=== PATIENT | male | born 1960 | race Two or more races ===

== ENCOUNTER 2017-03-12 09:13 | Day surgery (SDC) | payer OTHER ==
[~2017-03-12] VITALS: Ht 162.6 cm; Wt 76.3 kg
[2017-03-12 09:34] VITALS: Ht 162.6 cm; Wt 76.3 kg
[2017-03-12] MEDS ORDERED: HALO5TAB23 PO (09:46)
[2017-03-12] MEDS ORDERED: TRIHEXYPHENIDYL PO (09:46)
[2017-03-12] MEDS ORDERED: PROPOFOL 20 ML ONE (09:54)
[2017-03-12] MEDS ORDERED: MIDAZOLAM 1 MG/ML 2 ML INJ ONE (09:55)
[2017-03-12] MEDS ORDERED: FENTAnyl 50 MCG/ML VIAL ONE (09:55)
[2017-03-12 09:56] VITALS: BP 119/74; PULSE 77; RESP 18
--- NOTE | 2017-03-12 10:15 | OPPN ---
Date/Time of Note Date/Time of Note DATE: 03/12/17 TIME: 10:14 Proc Note GI Procedure Date 03/12/17 Indication: screening/surveillance Pre-procedure Diagnosis Screening colonoscopy Post-procedure Diagnosis Polyp demyelinative successfully removed by jumbo biopsy forceps it was in the sigmoid colon. External hemorrhoid Negative into terminal ileum Procedure Performed: Colonoscopy Surgeon see signature line Provider Engagement Executive none Anesthesia Type: MAC Tourniquet Time none EBL none Transfusion required none Biopsy 1: D- the polyp Grafts/Implants none Tubes/Drains none Complication(s) none Disposition: home Procedure Description See dictated report TIMOTHY DIALLO MD Mar 12, 2017 10:15
--- NOTE | 2017-03-12 10:15 | OPPN ---
Date/Time of Note Date/Time of Note DATE: 03/12/17 TIME: 10:14 Proc Note GI Procedure Date 03/12/17 Indication: screening/surveillance Pre-procedure Diagnosis Screening colonoscopy Post-procedure Diagnosis Polyp demyelinative successfully removed by jumbo biopsy forceps it was in the sigmoid colon. External hemorrhoid Negative into terminal ileum Procedure Performed: Colonoscopy Surgeon see signature line Manager Photo none Anesthesia Type: MAC Tourniquet Time none EBL none Transfusion required none Biopsy 1: D- the polyp Grafts/Implants none Tubes/Drains none Complication(s) none Disposition: home Procedure Description See dictated report TIMOTHY DIALLO MD Mar 12, 2017 10:15
--- NOTE | 2017-03-13 02:57 | GILP ---
DATE OF PROCEDURE: PROCEDURE PERFORMED: Colonoscopy with removal of polyp. INDICATION: The patient is a 56-year-old male undergoing this procedure for screening colonoscopy. The risk of the procedure, related and unrelated complications, anesthetic risks, alternatives discu ssed. Informed consent was obtained. DESCRIPTION OF PROCEDURE: Patient was brought to the GI lab, sedated by the anesthesiologist. Afte r optimum sedation, scope was passed with much ease into rectum, advanced through sigmoid, descendin g, transverse colon all the way into cecum and finally into terminal ileum. Clarity was good. Geri nliness was good. There were some bubbles seen in the right side of the colon and hepatic flexure, but the rest of the colon appeared normal. There was a polyp identified in the sigmoid colon diminu tive. Successfully removed in toto by jumbo biopsy forceps. Retroversion done which was normal. O n antegrade examination internal and external hemorrhoids identified. IMPRESSION: 1. Normal findings all the way into cecum. 2. Normal terminal ileum. 3. Polyp, diminutive, successfully removed from sigmoid colon. 4. External hemorrhoid 5. Clarity and cleanliness was good. PLAN: Review the histopathology of the polyp. The patient should stay on high fiber diet. Based o n the histopathology we will decide regarding the next endoscopy. Dictated By: TIMOTHY KELLY/CLAUDIA Conf#: [id number] DID#: [id number] CC: Primary Care Physician;*EndCC*
== END 2017-03-12 11:52 | disposition home or self-care (01) ==
LOC: GIL 09:13
PROVIDERS: ATTEND Internal Medicine Gastroenterology
DX: Z12.11 Encounter for screening for malignant neoplasm of colon (principal); D12.5 Benign neoplasm of sigmoid colon; K64.4 Residual hemorrhoidal skin tags; F20.9 Schizophrenia, unspecified
CPT/HCPCS: 45380; 88305; J2250; J3010; Z7610

== ENCOUNTER 2017-10-11 17:22 | Emergency (ER) | END 2017-10-11 20:33 | disposition short-term general hospital (02) ==